=== PATIENT | male | born 1965 | race Caucasian/White ===

== ENCOUNTER 2022-08-15 16:14 | Outpatient (CLI) | payer BC, SELFPAY ==
[2022-08-15 22:01] LABS: Albumin* 4.6 g/dL (3.3-5.0); Chloride* 104 mmol/L (96-114); Sodium* 141 mmol/L (135-149)
[2022-08-15 22:03] LABS: Cholesterol* 222 mg/dL (90-199)
[2022-08-15 22:04] LABS: Alanine Aminotransferase* 18 U/L (4-50); Alkaline Phosphatase* 71 U/L (40-150); Aspartate Amino Transferase* 30 U/L (12-35); Bilirubin Total* 0.8 mg/dL (0.1-1.5); Blood Urea Nitrogen* 11 mg/dL (7-30); Calcium* 9.8 mg/dL (8.4-10.6); Carbon Dioxide* 31 mmol/L (20-32); Creatinine* 0.7 mg/dL (0.5-1.5); Estimated Glomerular Filt Rate 106 ml/min; Glucose* 104 mg/dL (60-115); Total Protein* 7.3 g/dL (6.0-8.3); Triglycerides* 294 mg/dL (40-149)
[2022-08-15 22:05] LABS: HDL Cholesterol* 41 mg/dL (>=40); LDL Cholesterol Calculated 122 mg/dL (<100)
== END 2022-08-15 16:15 | disposition home or self-care (01) ==
PROVIDERS: PCP Family Medicine; Visit Provider Family Medicine
DX: I10 Essential (primary) hypertension (principal); E78.5 Hyperlipidemia, unspecified
CPT/HCPCS: 80053; 80061

== ENCOUNTER 2022-08-17 09:40 | Day surgery (SDC) | payer BC, SELFPAY ==
[2022-08-17] VITALS (15 sets, daily range): BP systolic 87–131; BP diastolic 51–77; PULSE 45–59; RESP 16; TEMP 36.2–37; O2SAT 94–99; BMI 24.7
[2022-08-17] MEDS: LACTATED RINGERS 1000 ML 1,000 ML 100 ML IV (09:55)
[2022-08-17] MEDS: SODIUM CHLORIDE 0.9 % (FLUSH) 10 ML SYRINGE IVF (09:55)
--- NOTE | 2022-08-17 10:11 | SUR.PREOP ---
TIME?OUT:?1015 PT/RN/MDA?VERIFICATION?OF?SURGICAL?SITE,?PROCEDURE,?AND?CONSENT OBTAINED?PRIOR?TO?INVASIVE?PROCEDURE.
[2022-08-17] MEDS: fentaNYL 100 MCG/2 ML inj IVP (10:17)
[2022-08-17] MEDS: MIDAZOLAM HCL 1 MG/ML inj IVP (10:17)
--- NOTE | 2022-08-17 10:27 | W.PM.NB ---
Nerve Block Nerve Block Time Seen by Provider: 10:15 Date Seen: 08/17/22 Type of block requested by surgeon for post-operative analgesia: axillary Side: left Time out performed: Yes Verification of patient name: Yes Verification of date of : Yes Site marking: site marked Name of person performing procedure: Jeevan Osuna Assistants, if any: Keegan Patterson CRNA Continuous monitoring Was continuous monitoring of O2 sat, B/P, director of cardiac cath lab, recorded every 15 minutes?: Yes Procedure Checklist: sterile prep, needles and gloves Ultrasound guided. Images saved: Yes Medications given in 5ml increments after negative aspiration: Ropivicaine %: 0.5 mL: 20 Decadron (mg): 10 Precedex (mcg): 15 Patient tolerated procedure well: Yes Block Charges Block Charge (with Pro Fee): Axillary Nerve Use of Ultrasound Machine for Block: Yes- US Guidance/pain block
[2022-08-17] MEDS: CEFAZOLIN 2 GM in 0.9 % SODIUM CHLORIDE Mini-bag 100 ML IVPB (12:20)
--- NOTE | 2022-08-17 12:51 | P.ORPRC_ITS ---
Procedure Note Date of procedure: 08/17/22 Procedure: PREOPERATIVE DIAGNOSIS: 1. Left volar, radial wrist benign mass/cyst POSTOPERATIVE DIAGNOSIS: 1. Left volar, radial wrist benign mass/cyst PROCEDURE: 1. Left volar, radial benign mass/cyst open excision SURGEON: Og Hernández MD. BIOMEDICAL SERVICE ENGINEER: Shakir Caba PA-C - Of note, an salon shampoo assistant was critical for this case to aid in patient positioning, tissue retraction, limb manipulation/positioning, patient safety, & closure. ANESTHESIA: Axillary block plus MAC EBL: Less than 5 mL IMPLANTS: None TOURNIQUET: 14 minutes at 250 torr COMPLICATIONS: None evident INDICATIONS: The patient is a pleasant 57-year-old male who has experienced left volar, radial wrist growth & pain that has progressively gotten worse. Nonoperative management has been tried but unsuccessful. Given the failure of nonoperative management, and how this affects daily life, surgery was recommended. DESCRIPTION OF PROCEDURE: Following a thorough discussion of risks, benefits, and alternatives consent was obtained and the operative extremity was marked. The patient was brought to the operating room and placed supine on the operating table. No antibiotics were administered as this was planned to be a local case only. Proper time-out was performed identifying proper patient, site, and procedure. The operative extremity was prepped and draped in the appropriate sterile fashion using ChloraPrep. The limb was exsanguinated and the tourniquet inflated. An incision was made on the volar, radial aspect of the left wrist. Sharp incision through skin and blunt dissection through subcutaneous tissue allowed us to identify any crossing vascular structures, in particular, the radial artery. At this stage, the tourniquet was deflated and hemostasis achieved. Closure was performed with 4-0 Monocryl. Soft dressings were applied, and the patient was awoken/transferred to the recovery room in stable condition. PLAN: 1. Encourage elevation of the operative extremity. 2. Range of motion of the operative extremity/digits as tolerated. 3. Ibuprofen, acetaminophen and/or [Percocet] as needed for pain. 4. Follow up with PA visit in 12-16 days for wound check and suture removal.
--- NOTE | 2022-08-17 13:18 | W.ANESCHARGE ---
Anesthesia Charges Start Date/Time Anesthesia Start Date: 08/17/22 Anesthesia Start Time: 12:11 Stop Date/Time Anesthesia Stop Date: 08/17/22 Anesthesia Stop Time: 13:13 Summary Emergency: No
== END 2022-08-17 14:05 | disposition home or self-care (01) ==
PROVIDERS: PCP Family Medicine; Visit Provider Orthopaedic Surgery Sports Medicine
PROC: (CPT 25110; principal; 2022-08-17 11:00)
DX: M67.432 Ganglion, left wrist (principal)
CPT/HCPCS: 25110; 00400; 64417; 76942; 88304; J0690; J1100; J2250; J2704; J2795; J3010; J7120

== ENCOUNTER 2023-08-03 08:24 | Outpatient (CLI) | payer BC, SELFPAY ==
--- NOTE | 2023-08-03 09:27 | W.ANESCHARGE ---
Anesthesia Charges Start Date/Time Anesthesia Start Date: 08/03/23 Anesthesia Start Time: 08:50 Stop Date/Time Anesthesia Stop Date: 08/03/23 Anesthesia Stop Time: 09:24
== END 2023-08-03 08:25 | disposition home or self-care (01) ==
LOC: OP CLINIC 08:24
PROVIDERS: PCP Family Medicine; Visit Provider Surgery
DX: Z12.11 Encounter for screening for malignant neoplasm of colon (principal); K63.5 Polyp of colon; Z80.0 Family history of malignant neoplasm of digestive organs; Z86.010 Personal history of colon polyps
CPT/HCPCS: 45385; 811; 88305; J2704

== ENCOUNTER 2023-08-16 11:04 | Outpatient (CLI) | payer BC, SELFPAY | END 2023-08-16 11:05 | disposition home or self-care (01) | LOC: NFLDREF 08-17 11:28 | PROVIDERS: PCP Family Medicine; Referring Provider Family Medicine; Visit Provider Family Medicine | DX: Z00.00 Encounter for general adult medical examination without abnormal findings (principal); E78.5 Hyperlipidemia, unspecified; R63.4 Abnormal weight loss; I10 Essential (primary) hypertension | CPT/HCPCS: 80053; 80061 ==

== ENCOUNTER 2024-05-08 15:20 | Emergency (ER) | payer BC, SELFPAY ==
[2024-05-08] VITALS (19 sets, daily range): BP systolic 93–130; BP diastolic 60–78; PULSE 57–73; RESP 18–22; TEMP 35.9–36.8; O2SAT 87–99; BMI 24.4
[2024-05-08] MEDS: 0.9 % SODIUM CHLORIDE 1000 ml 1,000 ML IV ×2 (16:30→17:43)
[2024-05-08] MEDS: LORazepam 2 MG/ML inj 1 MG IVP ×2 (16:40→21:00)
[2024-05-08 16:46] LABS: Basophils Percent Auto 0.7 % (0.0-3.0); Eosinophils Percent Auto 2.4 % (0.0-7.0); Hematocrit 33.1 % (37.0-53.0); Hemoglobin* 11.3 gm/dL (13.5-17.5); Immature Granulocytes Pct Auto 0.2 %; Lymphocytes Percent Auto 27.8 % (20-44); Mean Corpuscular HGB Conc 34 gm/dL (32-36); Mean Corpuscular Hemoglobin 29 pg (26-34); Mean Corpuscular Volume 86 fL (80-100); Monocytes Percent Auto 14.5 % (0.0-11.0); Neutrophils Percent Auto 54.4 % (42.0-72.0); Platelet Count* 281 K/uL (140-440); RDW Coefficient of Variation % 13.3 % (11.5-15.5); Red Blood Count 3.86 m/uL (4.30-5.90); White Blood Count* 4.49 K/uL (4.50-11.00)
[2024-05-08 16:47] LABS: Slide Review Reflex No
[2024-05-08 16:50] LABS: Lactate* 4.3 mmol/L (0.5-1.9)
[2024-05-08 17:01] LABS: Albumin* 4.9 g/dL (3.3-5.0); Chloride* 91 mmol/L (96-114); Sodium* 133 mmol/L (135-149)
[2024-05-08 17:03] LABS: Creatinine* 1.2 mg/dL (0.5-1.5); Est. Creatinine Clearance* 67.59; Estimated Glomerular Filt Rate 69 ml/min
[2024-05-08 17:04] LABS: Alkaline Phosphatase* 81 U/L (40-150); Anion Gap 15 mEq/L (7-15); Aspartate Amino Transferase* 153 U/L (12-35); Bilirubin Direct* 0.4 mg/dL (0.0-0.5); Bilirubin Total* 0.5 mg/dL (0.1-1.5); Blood Urea Nitrogen* 22 mg/dL (7-30); Calcium* 10.1 mg/dL (8.4-10.6); Carbon Dioxide* 27 mmol/L (20-32); Glucose* 166 mg/dL (60-115); Lipase* 583 U/L (23-300); Magnesium* 2.1 mg/dL (1.5-2.6); Total Protein* 7.5 g/dL (6.0-8.3)
[2024-05-08 17:05] LABS: Alanine Aminotransferase* 94 U/L (4-50); Ethanol* 0.22 % (0.01-0.03)
[2024-05-08 17:23] LABS: SARS PCR* Negative SARS-CoV-2 (Negative)
[2024-05-08 17:32] LABS: Troponin I* < 0.01 ng/mL (0.01-0.04)
[2024-05-08 17:33] LABS: Acetaminophen* < 10.0 ug/mL (10.0-30.0); Potassium* 2.8 mmol/L (3.6-5.1); Salicylate* < 1.0 mg/dL (1.0-10)
[2024-05-08 17:40] LABS: Appearance Urine Clear (Clear); Bilirubin Urine Negative (Negative); Blood Urine Negative (Negative); Color Urine Yellow (Yellow); Glucose Urine 1+ (Negative); Ketones Urine Negative (Negative); Leukocyte Esterase Urine Negative (Negative); Nitrite Urine Negative (Negative); Protein Urine Negative (Negative); Urobilinogen Urine 0.2 (0.2-1.0)
[2024-05-08 17:50] LABS: Amphetamine Screen Urine Negative (Negative); Barbiturate Screen Urine Negative (Negative); Benzodiazepines Screen Urine Negative (Negative); Cannabinoid Screen Urine POSITIVE (Negative); Cocaine Screen Urine Negative (Negative); Methadone Screen Urine Negative (Negative); Methamphetamines Screen Urine Negative (Negative); Opiate Screen Urine Negative (Negative); Oxycodone Screen Urine Negative (Negative); Phencyclidine Screen Urine Negative (Negative); Tricyclic Antidepressant Urine Negative (Negative)
[2024-05-08 17:56] LABS: RBC Urine 0-2 (0-2); WBC Urine 0-2 (0-5)
[2024-05-08] MEDS: POTASSIUM CHLORIDE 10 MEQ CAPSULE ER 40 MEQ PO (18:06)
--- NOTE | 2024-05-08 18:30 | ED_ITS ---
HPI - General Adult General Chief complaint: Alcohol/Intoxication Stated complaint: alcohol detox, anxiety Time Seen by Provider: 05/08/24 15:58 Source: patient Mode of arrival: ambulatory Limitations: no limitations History of Present Illness HPI narrative: 58-year-old male coming in today concerned about anxiety and chronic alcohol use. Patient states he has been drinking a pt of vodka daily for about 2 months . He states that his anxiety is completely out of control. He states that he had a fight in the following up with his son and it is ?killing him?. Patient is requesting help with detox today. He denies any history of withdrawal seizures or DTs. Patient is very scared about going to a detox facility as he states that the last when he went to worsened his anxiety. His last drink was earlier today. Related Data Home Medications ?Medication ?Instructions ?Recorded ?Confirmed B-complex with vitamin C 1 tab PO QDAY 06/07/23 08/21/23 ascorbic acid (vitamin C) 1,000 mg 1,000 mg PO DAILY 06/07/23 08/21/23 tablet diphenhydramine HCl 25 mg capsule 50 mg PO QHS PRN 06/07/23 05/08/24 Previous Rx's ?Medication ?Instructions ?Recorded hydroxyzine HCl 25 mg tablet 25 - 50 mg (1 - 2 x 25 mg) PO BID 08/21/23 PRN anxiety #180 tabs lisinopril 20 mg tablet 20 mg PO QDAY #90 tabs 08/21/23 propranolol 40 mg tablet 40 mg PO QHS #90 tabs 08/21/23 propranolol 80 mg capsule,24 80 mg PO QAM #90 caps 08/21/23 hr,extended release zolpidem 5 mg tablet 5 mg PO QHS PRN insomnia #90 tabs 02/26/24 Allergies Allergy/AdvReac Type Severity Reaction Status Date / Time No Known Drug Allergies Allergy Verified 08/21/23 13:49 Review of Systems Status of ROS: Reports: 10 or more systems reviewed and unremarkable except as noted in History and below [facility] Surgical History H/O excision of ganglion cyst (11/03/11) ?Z98.890 - Other specified postprocedural states (ICD-10) History of colonoscopy ?Z98.890 - Other specified postprocedural states (ICD-10) Family History Family/Other Colon cancer Social History Smoking Status: Current every day smoker What tobacco products do you use: cigarettes How often do you have a drink containing alcohol: 4 or more times a week Alc ohol type: beer How many standard drinks containing alcohol do you have on a typical day: 5 or 6 How often do you have six or more drinks on one occasion: Daily or almost daily AUDIT-C Alcohol total score: 10 Non-prescribed substance use: marijuana (any form) Caffeine: Yes Little interest or pleasure in doing things: not at all Feeling down, depressed, or hopeless: not at all Exam Narrative: Exam Narrative: Well-nourished well-developed patient , very anxious and tremulous. Alert and oriented x3. Answers questions appropriately. Thoughts are goal oriented and rational. No tangential or magical thinking noted. Patient speaks in full sentences without needing to catch his breath. HEENT: Normocephalic atraumatic. Pupils are equally round reactive to light. Extraocular muscles are intact. Conjunctivae are moist without any icterus noted. Moist mucous membranes. Posterior pharynx is normal. Neck is soft. Cardiovascular: Heart is regular rate and rhythm S1 and S2 are present without any murmurs. Lungs: Clear to auscultation bilaterally no wheezes rhonchi or rales are appreciated. Patient takes deep breaths without any discomfort. Abdomen: Soft and nontender nondistended with normal bowel sounds. Extremities: Bilateral lower extremities are without edema. Skin: Well perfused without any obvious rashes. Const: Vital Signs, click to edit/add: Vital Signs - 24 hr 05/08/24 15:37 05/08/24 16:58 05/08/24 16:59 Temperature 96.6 F L Pulse Rate 66 Pulse Rate [Pulse Oximeter] 73 Respiratory Rate 18 Blood Pressure Blood Pressure [Ri ght Upper Arm] 93/60 Pulse Oximetry 96 92 87 L Oxygen Delivery Me thod Room Air 05/08/24 17:00 05/08/24 17:03 05/08/24 17:30 Temperature Pulse Rate 62 59 L Pulse Rate [Pulse Oximeter] 60 Respiratory Rate 22 Blood Pressure Blood Pressure [Ri ght Upper Arm] Pulse Oximetry 89 92 98 Oxygen Delivery Me thod Room Air 05/08/24 18:00 05/08/24 18:30 05/08/24 18:58 Temperature Pulse Rate 57 L 57 L 61 Pulse Rate [Pulse Oximeter] Respiratory Rate Blood Pressure 124/77 Blood Pressure [Ri ght Upper Arm] Pulse Oximetry 91 88 92 Oxygen Delivery Me thod 05/08/24 20:30 Temperature 98.0 F Pulse Rate Pulse Rate [Pulse Oximeter] 71 Respiratory Rate 22 Blood Pressure Blood Pressure [Ri ght Upper Arm] 117/70 Pulse Oximetry 97 Oxygen Delivery Me thod Room Air Course Course ED Course: IV is established, fluids were started and patient is given 1 mg of IV Ativan. EKG, read by me, shows sinus bradycardia with a pulse of 58. CBC shows a hemoglobin of 11.3, normal platelet count. Sodium is low at 133, potassium is low at 2.8, chloride is low at 91. Normal magnesium. Renal function is within normal limits although a creatinine of 1.2 is slightly above his baseline. Lactate is elevated at 4.3. LFTs are elevated. Normal troponin. Lipase is slightly elevated at 583. UA is unremarkable. Drug screen is positive for marijuana. Blood alcohol level is 0.22 2nd L of normal saline started patient given 40 mEq of oral potassium. Patient required 2 more doses of IV Ativan while he was here for anxiety. Patient accepted to [facility] detox. Vital Signs Vital signs: Initial Vital Signs Temperature 96.6 F L 05/08/24 15:37 Temperature Source Temporal Artery Scan 05/08/24 15:37 Pulse Rate 73 05/08/24 15:37 Respiratory Rate 18 05/08/24 15:37 Blood Pressure 93/60 05/08/24 15:37 Blood Pressure Mean 71 05/08/24 15:37 Pulse Oximetry 96 05/08/24 15:37 Oxygen Delivery Method Room Air 05/08/24 15:37 Vital Signs Temperature 96.6 F L 05/08/24 15:37 Pulse Rate 73 05/08/24 15:37 Respiratory Rate 18 05/08/24 15:37 Blood Pressure 93/60 05/08/24 15:37 Pulse Oximetry 96 05/08/24 15:37 Oxygen Delivery Method Room Air 05/08/24 15:37 Temperature 98.0 F 05/08/24 20:30 Pulse Rate 71 05/08/24 20:30 Respiratory Rate 22 05/08/24 20:30 Blood Pressure 117/70 05/08/24 20:30 Pulse Oximetry 97 05/08/24 20:30 Oxygen Delivery Method Room Air 05/08/24 20:30 Medications Administered Medications: Discontinued Medications Generic Name Dose Route Start Last Admin Trade Name Jeni PRN Reason Stop Dose Admin Sodium Chloride 1,000 mls @ 1,000 mls/hr 05/08/24 16:15 05/08/24 17:30 0.9 % Sodium Chloride 1000 Ml IV 05/08/24 17:14 Infused .Q1H [facility] Infusion Sodium Chloride 1,000 mls @ 1,000 mls/hr 05/08/24 17:15 05/08/24 19:01 0.9 % Sodium Chloride 1000 Ml IV 05/08/24 18:14 Infused .Q1H [facility] Infusion Lorazepam 1 mg 05/08/24 16:08 05/08/24 16:40 Lorazepam 2 Mg/Ml Inj IVP 05/08/24 16:09 1 mg ONCE ONE Administration Lorazepam 0.5 mg 05/08/24 18:24 05/08/24 18:55 Lorazepam 2 Mg/Ml Inj IVP 05/08/24 18:25 0.5 mg ONCE ONE Administration Potassium Chloride 40 meq 05/08/24 17:45 05/08/24 18:06 Potassium Chloride 10 Meq Capsule Er PO 05/08/24 17:46 40 meq ONCE ONE Administration Medical Decision Making MDM Narrative Medical decision making narrative: 58-year-old male with acute alcohol intoxication, significant anxiety. Patient will be transferred to detox. He will be sent with propanolol, lisinopril, hydroxyzine and potassium chloride 20 mEq daily for the next 3 days. Lab Data Lab results reviewed: Yes I reviewed the patient's lab results Labs: Lab Results 05/08/24 05/08/24 Range/Units 16:30 17:23 WBC 4.49 L (4.50-11.00) K/uL RBC 3.86 L (4.30-5.90) m/uL Hgb 11.3 L (13.5-17.5) gm/dL Hct 33.1 L (37.0-53.0) % MCV 86 (80-100) fL MCH 29 (26-34) pg MCHC 34 (32-36) gm/dL RDW Coeff of Prateek 13.3 (11.5-15.5) % Plt Count 281 (140-440) K/uL Neut % (Auto) 54.4 (42.0-72.0) % Lymph % (Auto) 27.8 (20-44) % Wright % (Auto) 14.5 H (0.0-11.0) % Eos % (Auto) 2.4 (0.0-7.0) % Baso % (Auto) 0.7 (0.0-3.0) % Neut # (Auto) 2.40 (1.7-7.0) K/uL Lymph # (Auto) 1.20 (0.90-2.90) K/uL Wright # (Auto) 0.70 (0.00-0.90) K/UL Eos # (Auto) 0.10 (0.00-0.50) K/uL Baso # (Auto) 0.00 (0.00-0.30) K/uL Abs Immat Gran (auto) 0.00 (0.00-0.30) K/uL Imm/Tot Granulo (auto) 0.2 % Sodium 133 L (135-149) mmol/L Potassium 2.8 L* (3.6-5.1) mmol/L Chloride 91 L (96-114) mmol/L Carbon Dioxide 27 (20-32) mmol/L Anion Gap 15 (7-15) mEq/L BUN 22 (7-30) mg/dL Creatinine 1.2 (0.5-1.5) mg/dL Estimated Creat Clear 67.59 Estimated GFR 69 ml/min Glucose 166 H (60-115) mg/dL Lactate 4.3 H* (0.5-1.9) mmol/L Calcium 10.1 (8.4-10.6) mg/dL Magnesium 2.1 (1.5-2.6) mg/dL Total Bilirubin 0.5 (0.1-1.5) mg/dL Direct Bilirubin 0.4 (0.0-0.5) mg/dL AST 153 H (12-35) U/L ALT 94 H (4-50) U/L Alkaline Phosphatase 81 (40-150) U/L Troponin I < 0.01 L (0.01-0.04) ng/mL Total Protein 7.5 (6.0-8.3) g/dL Albumin 4.9 (3.3-5.0) g/dL Lipase 583 H (23-300) U/L TSH 1.780 (0.270-4.20) uIU/mL Urine Color Yellow (Yellow) Urine Appearance Clear (Clear) Urine pH 6.0 (5.0-8.5) Ur Specific [place] 1.010 (1.000-1.030) Urine Protein Negative (Negative) Urine Glucose (UA) 1+ A (Negative) Urine Ketones Negative (Negative) Urine Blood Negative (Negative) Urine Nitrite Negative (Negative) Urine Bilirubin Negative (Negative) Urine Urobilinogen 0.2 (0.2-1.0) Ur Leukocyte Esterase Negative (Negative) Urine RBC 0-2 (0-2) Urine WBC 0-2 (0-5) Ur Squamous Epith Cells None (None-Few) Urine Bacteria None (None) Salicylates < 1.0 L (1.0-10) mg/dL Urine Opiates Screen Negative (Negative) Ur Oxycodone Screen Negative (Negative) Urine Methadone Screen Negative (Negative) Acetaminophen < 10.0 L (10.0-30.0) ug/mL Ur Barbiturates Screen Negative (Negative) U Tricyclic Antidepress Negative (Negative) Ur Phencyclidine Scrn Negative (Negative) Ur Amphetamines Screen Negative (Negative) U Methamphetamines Scrn Negative (Negative) U Benzodiazepines Scrn Negative (Negative) Urine Cocaine Screen Negative (Negative) U Marijuana (THC) Screen POSITIVE A (Negative) Ur Drug Screen Comment See Note Ethyl Alcohol 0.22 H (0.01-0.03) % SARS-CoV-2 (PCR) Negative SARS-CoV-2 (Negative) ECG Data Attestation: I personally reviewed and interpreted this ECG as follows: Discharge Plan Discharge Clinical Impression: Acute alcohol intoxication, Anxiety, Severe alcohol use disorder Patient Disposition: Xfer Other Condition: Stable Prescriptions: No Action diphenhydramine HCl 25 mg capsule 50 mg PO QHS PRN ascorbic acid (vitamin C) 1,000 mg tablet 1,000 mg PO DAILY B-complex with vitamin C Tablet 1 tab PO QDAY hydroxyzine HCl 25 mg tablet 25 - 50 mg PO BID PRN (Reason: anxiety) Qty: 180 3RF lisinopril 20 mg tablet 20 mg PO QDAY Qty: 90 3RF propranolol 80 mg capsule,extended release 24hr 80 mg PO QAM Qty: 90 3RF Patient Comments: TAKE ONE CAPSULE BY MOUTH DAILY propranolol 40 mg tablet 40 mg PO QHS Qty: 90 3RF Patient Comments: TAKE ONE TABLET BY MOUTH AT BEDTIME zolpidem 5 mg tablet 5 mg PO QHS PRN (Reason: insomnia) Qty: 90 1RF Follow Up/Referrals: Oscar Aldrich MD [Primary Care Provider] - Stand Alone Forms: [facility] Info Instructions
[2024-05-08] MEDS: LORazepam 2 MG/ML inj 0.5 MG IVP (18:55)
== END 2024-05-08 21:25 | disposition other institution (70) ==
PROVIDERS: Emergency Provider Family Medicine; PCP Family Medicine
DX: F10.229 Alcohol dependence with intoxication, unspecified (principal); F41.9 Anxiety disorder, unspecified
CPT/HCPCS: 36415; 80048; 80076; 80143; 80179; 80306; 81001; 82077; 83605; 83690; 83735; 84443; 84484; 85025; 87635; 93005; 94761; 96374; 96376; 99284; 99285; A9270; J2060; J7030

== ENCOUNTER 2024-05-08 21:20 | Outpatient (CLI) | payer BC, SELFPAY | END 2024-05-08 21:21 | disposition home or self-care (01) | PROVIDERS: PCP Family Medicine; Visit Provider Family Medicine | DX: F10.139 Alcohol abuse with withdrawal, unspecified (principal) | CPT/HCPCS: A0425; A0429 ==

== ENCOUNTER 2024-10-07 14:35 | Outpatient (CLI) | payer BC, SELFPAY | END 2024-10-07 14:36 | disposition home or self-care (01) | PROVIDERS: PCP Family Medicine; Visit Provider Family Medicine | DX: R74.8 Abnormal levels of other serum enzymes (principal); I10 Essential (primary) hypertension | CPT/HCPCS: 80053; 80061; 83690 ==